=== PATIENT | male | born 1965 | race Caucasian/White ===

== ENCOUNTER 2019-05-19 09:30 | Inpatient (IN) | payer BC ==
[~2019-05-19] VITALS: Ht 180.3 cm; Wt 94.1 kg
[2019-05-19] MEDS ORDERED: PROTONIX 40MG T40 MG PO (11:00)
[2019-05-19] MEDS ORDERED: REGLAN 10MG10 MG/TAB PO (11:01)
[2019-05-19] MEDS ORDERED: COREG 25MG25 MG/TAB PO (11:02)
[2019-05-19] MEDS ORDERED: BUSPIRONE HCL7.5 MG PO (11:03)
[2019-05-19] MEDS ORDERED: LASIX 80MG TABL80 MG PO (11:03)
[2019-05-19] MEDS ORDERED: ASPIRIN 81M81 MG/TA2 PO (11:04)
[2019-05-19] MEDS ORDERED: K-DUR 10 MEQ T10 MEQ PO (11:04)
[2019-05-19] MEDS ORDERED: D3-5050000 IU PO (11:05)
[2019-05-19] MEDS ORDERED: ZEPATIER 50-101 EACH PO (11:06)
[2019-05-19] MEDS ORDERED: NOVOLOG 100U100 U/M1 SQ (11:07)
[2019-05-19] MEDS ORDERED: COZAAR100 MG PO (11:08)
[2019-05-19 11:23] LABS: BASO % 0.3 % (0.0-2.0); EOS # 0.1 (0.0-0.7); EOS % 0.9 % (0-4.0); GRAN # 7.9 (1.4-6.5); GRAN % 77.1 % (42.2-75.2); LYMPH # 1.1 (1.2-3.4); LYMPH % 10.5 % (20.0-51.0); MEAN CELL VOLUME 91 fl (80.0-100.0); MEAN CORPUSCULAR HGB CONC 35 g/dl (33.0-37.0); MEAN PLATELET VOLUME 9.4 fl (7.4-10.4); MONO # 1.1 (0.1-0.6); MONO % 10.2 % (1.7-9.3); PLATELET COUNT 296 K/mm3 (130-400); RED BLOOD COUNT 2.81 M/mm3 (4.10-5.30); REDCELL DISTRIBUTION WIDTH-CV 13.3 % (11.5-14.5)
[2019-05-19 11:24] LABS: HEMATOCRIT 25.5 % (37.0-47.0); HEMOGLOBIN 8.9 g/dl (12.5-16.0); MEAN CORPUSCULAR HEMOGLOBIN 32 pg (27.0-31.0)
[2019-05-19 11:29] LABS: PROTHROMBIN TIME 11.6 SECONDS (9.7-12.8)
[2019-05-19] MEDS ORDERED: TRULICITY0.75 MG/0. SQ (11:29)
[2019-05-19 11:31] LABS: PARTIAL THROMBOPLASTIN TIME 24.8 SECONDS (26.0-37.0)
[2019-05-19 11:39] LABS: ALBUMIN 3.5 gm/dL (3.5-5.0); BILIRUBIN,TOTAL 1.3 mg/dL (0.0-1.0); CREATININE, serum 4.86 (0.52-1.25); TOTAL PROTEIN 6.4 gm/dL (6.4-8.2)
[2019-05-19 11:50] LABS: IRON,SERUM 56 ug/dL (35-150)
[2019-05-19 12:00] LABS: TOTAL IRON BINDING CAPACITY 187 ug/dL (265-497)
[2019-05-19 12:14] LABS: AMYLASE 40 U/L (30-110); LACTATE DEHYDROGENASE 326 U/L (313-618); LIPASE 38 U/L (23-300)
[2019-05-19 15:22] VITALS: BP 190/70; PULSE 92; TEMP 98.7
--- NOTE | 2019-05-19 17:55 | NUR ---
PT TOOK A NAP THIS AFTERNOON AFTER DIALYSIS, AWOKE BRIEFLY NOW TO ATTEMPT EATING SOME CLEAR LIQUIDS. B/P ELEVATED, GIVEN SCHEDULED MEDS, AND B/P'S TRENDING DOWN, WILL CONTINUE TO MONITOR. WILL BE DOING DRESSING CHANGE THIS SHIFT, WILL CHECK WITH NOC NURSE TO SEE IF THEY WANT TO ASSIST AT SHIFT CHANGE INORDER TO VIEW ULCER. PT APPEARS NAUSEATED HAS EMISIS BASIN NEAR HIM BUT DENIED NEED FOR NAUSEA MEDS, REMINDED HIM THAT WE DO HAVE SOMETING IF HE NEEDS IT. NO OTHER NEEDS VOICED AT THIS TIME.
[2019-05-19 19:04] VITALS: BP 180/70; PULSE 78; TEMP 99.5
--- NOTE | 2019-05-19 19:20 | NUR ---
Patient assessed at this time. Alert and oriented x 4, and able to make needs known. Denies having pain and discomfort at this time. No IV access. AV fistula to left upper arm, with positive bruit and thrill. Dressing to area is CDI. Denies SOB and dyspnea. LS CTA. Respirations even and unlabored. HRR. Capillary refill less than 3 seconds. Non-tenting skin turgor. BSAx4. Abdomen soft and non-tender. Does have some nausea. Has not eatten any supper at this time. Given scheduled Reglan. No edema. Patient sees wound care outpatient for sores to bottom. Sores to bilateral buttocks. the one on the left has a dressing, and patient requested dressing to be changed. Dressing taken off, cleaned. Some yellow drainage to old packing noted. Repacked using sterile q-tip. Surrounding skin is without redness, warmth, swelling, and pain. gauze placed over top and tape. The ulcer on the right buttock had been open to air. Patient states that wound care does not put a dressing on it, it is an older one that is healing. Did not want any dressing placed to that sore. Denies having any questions, needs, or concerns at this time. Resting in bed with call light within reach.
[2019-05-20 00:05] VITALS: BP 177/65; PULSE 73; TEMP 98.8
[2019-05-20 04:44] VITALS: BP 187/72; PULSE 79; TEMP 98.5
--- NOTE | 2019-05-20 05:17 | NUR ---
Patient's BP has been 170s-190s/60s-70s. Has received PRN Appresoline every 4 hours during the night. No emesis this shift. Did receive scheduled Reglan last night and protonix this morning. Max temperature during the night was 99.5. Still needing occult stools sample. Patient aware and supplies in room. Has been sleepy and resting most of the night. Call light is within reach.
[2019-05-20 07:29] VITALS: BP 184/68; PULSE 74; TEMP 98.7
[2019-05-20 11:33] VITALS: BP 159/58; PULSE 67; TEMP 99
[2019-05-20 16:21] VITALS: BP 166/61; PULSE 62; TEMP 99
--- NOTE | 2019-05-20 19:56 | NUR ---
Pt has had an uneventful day. Pt has slept the majority of the day, and has been independent in his room. No other concerns. Report given to NOAH Carbone.
[2019-05-20 20:30] VITALS: BP 140/62; PULSE 65; TEMP 98.7
--- NOTE | 2019-05-20 20:30 | NUR ---
Initial shift assessment done- has been resting most of the day- understands will have EGD at 0900 in the morning- NPO after MN- consent signed at this time. Denies pain/nausea- states right in the center of abdomen he feels a "full feeling" did not eat supper tonight. Understands we need a stool for occult when he has his next stool. Did change the dressings to his buttocks- one to the right buttock and one to the left buttock- both small - looks like slits, both same size and look the same- deep,,packed with iodoform gauze and covered with 4x4 and tape-
[2019-05-21] VITALS (10 sets, daily range): BP systolic 132–186; BP diastolic 48–74; PULSE 62–70; TEMP 97.6–98.8
--- NOTE | 2019-05-21 00:20 | NUR ---
Was given Apresoline for B/P 186/ per prn orders- has been resting, did have large black BM- occult positive. NP0 for EGD in AM. Denies pain.
--- NOTE | 2019-05-21 05:30 | NUR ---
Was given Apresoline p.o for B/P 177/ , no requests, has been sleeping well tonight-Quiet night
[2019-05-21 06:36] LABS: BASO # 0.1 (0.0-0.2); BASO % 0.8 % (0.0-2.0); EOS # 0.2 (0.0-0.7); EOS % 1.6 % (0-4.0); GRAN # 6.4 (1.4-6.5); LYMPH # 1.7 (1.2-3.4); LYMPH % 18.5 % (20.0-51.0); MEAN CELL VOLUME 94 fl (80.0-100.0); MEAN CORPUSCULAR HGB CONC 34 g/dl (33.0-37.0); MEAN PLATELET VOLUME 9.7 fl (7.4-10.4); MONO # 0.9 (0.1-0.6); MONO % 9.1 % (1.7-9.3); PLATELET COUNT 283 K/mm3 (130-400); RED BLOOD COUNT 2.81 M/mm3 (4.10-5.30); REDCELL DISTRIBUTION WIDTH-CV 13.8 % (11.5-14.5)
[2019-05-21 06:41] LABS: HEMATOCRIT 26.5 % (37.0-47.0); MEAN CORPUSCULAR HEMOGLOBIN 32 pg (27.0-31.0)
[2019-05-21 06:48] LABS: ALBUMIN 3.3 gm/dL (3.5-5.0); BILIRUBIN,TOTAL 1.1 mg/dL (0.0-1.0); CALCIUM 8.8 mg/dL (8.4-10.2); CREATININE, serum 5.31 (0.52-1.25); POTASSIUM 3.9 mmol/L (3.4-5.0); TOTAL PROTEIN 6.1 gm/dL (6.4-8.2)
--- NOTE | 2019-05-21 08:28 | NUR ---
Patient is going down for EGD at this time, consent signed, IVF at o
--- NOTE | 2019-05-21 09:30 | NUR ---
Patient arrived back to Medical floor from Endoscopy, he is alert/oriented, vital signs stable, denies needs at this time
--- NOTE | 2019-05-21 09:46 | NUR ---
Assessment completed, alert/oriented, vital signs stable, reports abd "fullness" but denies pain, he had EGD this morning and his has been updated on plan of care, heart RRR, lungs CTA, hemaglobin stable at 9.0/ no signs of bleeding noted, denies other needs at this time, will continue to mnitor
--- NOTE | 2019-05-21 10:47 | NUR ---
[employer] spoke with patient by calling him (ph#[phone]). Patient lives in [place] with his Ami (ph#[phone]) and his adult daughter. Patient sees Dr. Glover for primary care and obtains medications from [facility] with no difficulties. Patient uses a cane and no other DME. Patient reports independence with his ADLS and plans to return home upon discharge. Patient states his , Ami is his DPOA-HC. Patient states he sees a land development project manager, Rayna Fernández in [place] regularly. SW to continue to follow as needed.
--- NOTE | 2019-05-21 19:50 | NUR ---
At this time, patient has just returned to bed from using bathroom. He states he had diarrhea. He is also "feeling woozy" at this time. BP is 113/58, HR 60, O2 97 on RA and Temp 98.0. BG is checked and it is 140. Patient states he has been feeling woozy recently but it usually doesn't last this long. Will continue to monitor vitals.
[2019-05-22 03:46] VITALS: BP 131/59; PULSE 72; TEMP 98.5
--- NOTE | 2019-05-22 05:27 | NUR ---
Patient has had a restful night and is no longer feeling "whoozy". No complaints of pain or further concerns. Will continue to monitor.
[2019-05-22 07:05] VITALS: BP 174/72; PULSE 63; TEMP 98
[2019-05-22 08:47] LABS: BASO # 0.1 (0.0-0.2); BASO % 0.6 % (0.0-2.0); EOS # 0.1 (0.0-0.7); EOS % 1.5 % (0-4.0); GRAN # 7.1 (1.4-6.5); LYMPH # 1.4 (1.2-3.4); MEAN CELL VOLUME 91 fl (80.0-100.0); MEAN CORPUSCULAR HGB CONC 34 g/dl (33.0-37.0); MEAN PLATELET VOLUME 9.4 fl (7.4-10.4); MONO # 0.7 (0.1-0.6); MONO % 7.8 % (1.7-9.3); PLATELET COUNT 269 K/mm3 (130-400); RED BLOOD COUNT 2.96 M/mm3 (4.20-5.60); REDCELL DISTRIBUTION WIDTH-CV 13.9 % (11.5-14.5)
[2019-05-22 08:52] LABS: HEMOGLOBIN 9.3 g/dl (13.5-18.0); MEAN CORPUSCULAR HEMOGLOBIN 31 pg (27.0-31.0)
[2019-05-22 08:58] LABS: ALBUMIN 3.1 gm/dL (3.5-5.0); CALCIUM 8.4 mg/dL (8.4-10.2); CREATININE, serum 6.73 (0.66-1.25); POTASSIUM 4.4 mmol/L (3.4-5.0)
[2019-05-22] MEDS ORDERED: LASIX 80MG TABL80 MG PO (09:07)
[2019-05-22] MEDS ORDERED: REGLAN 5MG T5 MG/TAB PO (09:08)
[2019-05-22] MEDS ORDERED: INSULIN AS100 UNIT/3 SQ (09:44)
[2019-05-22] MEDS ORDERED: APRESOLINE 10MG10 MG PO (09:46)
[2019-05-22] MEDS ORDERED: RENVELA800 MG PO (09:47)
[2019-05-22] MEDS ORDERED: PROTONIX 40MG T40 MG PO ×2 (09:51)
[2019-05-22] MEDS ORDERED: PRISTIQ25 MG PO (09:56)
[2019-05-22] MEDS ORDERED: BUSPIRONE HCL7.5 MG PO (09:58)
[2019-05-22 12:18] VITALS: BP 144/64; PULSE 63; TEMP 98.4
[2019-05-22] MEDS ORDERED: COLESTID 1GM1 G PO (13:01)
--- NOTE | 2019-05-22 13:40 | NUR ---
PT WENT TO DIALYSIS THIS AM WITHOUT ISSUES. ECHO PERFORMED AFTERWARDS. DISCHARGE PAPERWORK DISCUSSED WTIH PT, ALL QUESTIONS ANSWERED. PT STATED HE'D CALL US UPON RIDES ARRIVAL.
--- NOTE | 2019-05-22 14:00 | NUR ---
PT ESCORTED DELPHINE BY SQL MANAGER.
[2019-07-05] MEDS ORDERED: PROTONIX 40MG T40 MG PO (10:55)
[2019-07-05] MEDS ORDERED: LIPITOR20 MG PO (11:41)
== END 2019-05-22 14:00 | disposition home or self-care (01) | DRG 380 ==
LOC: MEDICAL 09:30 → EDSEX 10:54 → MEDICAL 10:54
PROVIDERS: Internal Medicine Gastroenterology; ADMIT Internal Medicine Nephrology
PROC: 0DB78ZX Excision of Stomach, Pylorus, Via Natural or Artificial Opening Endoscopic, Diagnostic (ICD-10-PCS; 2019-05-21)
PROC: 0DB68ZX Excision of Stomach, Via Natural or Artificial Opening Endoscopic, Diagnostic (ICD-10-PCS; 2019-05-21)
PROC: 0DB68ZZ Excision of Stomach, Via Natural or Artificial Opening Endoscopic (ICD-10-PCS; 2019-05-21)
PROC: 0DB58ZX Excision of Esophagus, Via Natural or Artificial Opening Endoscopic, Diagnostic (ICD-10-PCS; 2019-05-21)
PROC: 0DB98ZX Excision of Duodenum, Via Natural or Artificial Opening Endoscopic, Diagnostic (ICD-10-PCS; principal; 2019-05-21 09:00)
PROC: 5A1D70Z Performance of Urinary Filtration, Intermittent, Less than 6 Hours Per Day (ICD-10-PCS; 2019-05-22)
DX: K22.70 Barrett's esophagus without dysplasia (principal); N18.6 End stage renal disease; N25.81 Secondary hyperparathyroidism of renal origin; K44.9 Diaphragmatic hernia without obstruction or gangrene; K29.70 Gastritis, unspecified, without bleeding; E11.65 Type 2 diabetes mellitus with hyperglycemia; D63.1 Anemia in chronic kidney disease; K90.0 Celiac disease; F32.9 Major depressive disorder, single episode, unspecified; K21.9 Gastro-esophageal reflux disease without esophagitis; E55.9 Vitamin D deficiency, unspecified; E11.22 Type 2 diabetes mellitus with diabetic chronic kidney disease; L89.312 Pressure ulcer of right buttock, stage 2; D64.9 Anemia, unspecified; K31.7 Polyp of stomach and duodenum; K30 Functional dyspepsia; K29.80 Duodenitis without bleeding; Z79.82 Long term (current) use of aspirin
CPT/HCPCS: J1644; J1815; J2704; J2916; J7030; Q5105

== ENCOUNTER → 2019-05-29 | Outpatient (CLI) | payer BC ==
[~2019-05-29] MED LIST: APRESOLINE 10MG10 MG PO; ASPIRIN 81M81 MG/TA2 PO; BUSPIRONE HCL7.5 MG PO; COLESTID 1GM1 G PO; COREG 25MG25 MG/TAB PO; COZAAR100 MG PO; D3-5050000 IU PO; INSULIN AS100 UNIT/3 SQ; K-DUR 10 MEQ T10 MEQ PO; LASIX 80MG TABL80 MG PO; NOVOLOG 100U100 U/M1 SQ; PRISTIQ25 MG PO; PROTONIX 40MG T40 MG PO; REGLAN 10MG10 MG/TAB PO; REGLAN 5MG T5 MG/TAB PO; RENVELA800 MG PO; TRULICITY0.75 MG/0. SQ; ZEPATIER 50-101 EACH PO
== END ==
LOC: ZCOL.LAB 15:18
DX: Z11.59 Encounter for screening for other viral diseases (principal); E11.22 Type 2 diabetes mellitus with diabetic chronic kidney disease; N18.6 End stage renal disease

== ENCOUNTER 2020-03-21 10:07 | Day surgery (SDC) | payer MEDICARE, BC ==
[~2020-03-21] VITALS: Ht 182.9 cm; Wt 99.2 kg
[~2020-03-21 10:07] MED LIST changes: +ADVIL200 MG PO; +FLORINEF ACETA0.1 MG PO; +LIPITOR20 MG PO; +PRISTIQ 50 MG T50 MG PO
[2020-03-21] MEDS ORDERED: ASPIRIN 32325 MG/TAB PO (10:35)
[2020-03-21 10:55] VITALS: BP 182/82; PULSE 66; TEMP 97.6
[2020-03-21 13:07] VITALS: BP 181/84; PULSE 68; TEMP 97.9
[2020-03-21 13:15] VITALS: BP 199/87; PULSE 65
[2020-03-21 13:45] VITALS: BP 195/88; PULSE 69
[2020-03-21 13:50] VITALS: BP 171/79
[2020-03-21 14:57] VITALS: BP 181/84; PULSE 67
--- NOTE | 2020-03-21 15:34 | NUR ---
PT RETURNED FROM ENDO PROCEDURE ROOM INTO BAY#8. PT ALERT AND SLEEPY. LUNGS CLEAR, HRR, BOWEL SOUNDS PRESENT. PT DENIES PAIN OR NAUSEA. PT TOLERATING APPLE JUICE AND PUDDING AND APPLESAUCE. UN ROOM WITH PT, CALL LIGHT IN REACH.
--- NOTE | 2020-03-21 15:38 | NUR ---
PRE-OP BP WAS 182/82. PT DENIES HEADACHE OR NAUSEA R/T ELEVATED BP. PT TOLERATING PO WITHOUT DIFFICULTY.
--- NOTE | 2020-03-21 15:40 | NUR ---
PT CONT TO DENY HEADACHE AND NAUSEA RELATED TO INCREASED BP AND POST-TX. PT WAS GIVEN 5MG OF HYDROLIZINE IV PER NURSE ANETHETISTJASON. WILL CONT TO MONITOR BP.
--- NOTE | 2020-03-21 15:44 | NUR ---
PT BP IS BELOW 190 SYSTOLIC PER JASON ELMORE. IV DC'D PER RIGHT HAND. PT DENIES PAIN OR NAUSEA AT THIS TIME. DISMISSAL INSSTRUCTIONS GIVEN. PT DENIES QUESTIONS. PT DISCHARGED PER WC INTO FAILY VEHICLE. PT MARKOS
== END 2020-03-21 15:00 | disposition home or self-care (01) ==
LOC: SDCO 10:07
DX: K21.00 Gastro-esophageal reflux disease with esophagitis, without bleeding (principal); K44.9 Diaphragmatic hernia without obstruction or gangrene; K22.8 Other specified diseases of esophagus; K29.70 Gastritis, unspecified, without bleeding; D12.2 Benign neoplasm of ascending colon; D12.5 Benign neoplasm of sigmoid colon; D12.3 Benign neoplasm of transverse colon; K64.2 Third degree hemorrhoids; K64.4 Residual hemorrhoidal skin tags; E10.22 Type 1 diabetes mellitus with diabetic chronic kidney disease; I12.0 Hypertensive chronic kidney disease with stage 5 chronic kidney disease or end stage renal disease; E10.43 Type 1 diabetes mellitus with diabetic autonomic (poly)neuropathy; K31.84 Gastroparesis; D63.1 Anemia in chronic kidney disease; E78.5 Hyperlipidemia, unspecified; N18.6 End stage renal disease; F32.9 Major depressive disorder, single episode, unspecified; Z99.2 Dependence on renal dialysis; Z80.0 Family history of malignant neoplasm of digestive organs; Z79.82 Long term (current) use of aspirin; Z79.899 Other long term (current) drug therapy; Z91.14 Patient's other noncompliance with medication regimen; E21.3 Hyperparathyroidism, unspecified
CPT/HCPCS: J0360; J2704

== ENCOUNTER 2021-03-20 08:01 | Outpatient (CLI) | payer MEDICARE, OTHER ==
[2021-03-20] VITALS (8 sets, daily range): BP systolic 144–220; BP diastolic 71–114; PULSE 70–85; TEMP 98.7
[~2021-03-20] VITALS: Ht 183 cm; Wt 103.8 kg
[~2021-03-20 08:01] MED LIST changes: +ASPIRIN 32325 MG/TAB PO
[2021-03-20] MEDS ORDERED: ELIQUIS 5MG PO (08:24)
[2021-03-20] MEDS ORDERED: LIPITOR20 MG PO (08:25)
[2021-03-20] MEDS ORDERED: ASPIRIN E.C. 8181 MG PO (08:25)
[2021-03-20] MEDS ORDERED: BUSPIRONE HCL7.5 MG PO (08:26)
[2021-03-20] MEDS ORDERED: COREG 25MG25 MG/TAB PO (08:27)
[2021-03-20] MEDS ORDERED: PRISTIQ 50 MG T50 MG PO (08:27)
[2021-03-20] MEDS ORDERED: FLORINEF ACETA0.1 MG PO (08:28)
[2021-03-20] MEDS ORDERED: COZAAR100 MG PO (08:29)
[2021-03-20] MEDS ORDERED: LASIX 80MG TABL80 MG PO (08:29)
[2021-03-20] MEDS ORDERED: REGLAN 10MG10 MG/TAB PO (08:30)
[2021-03-20] MEDS ORDERED: PROTONIX 40MG T40 MG PO (08:31)
[2021-03-20 08:32] LABS: HEMOGLOBIN 10.9 g/dl (13.5-18.0); MEAN CELL VOLUME 90 fl (80.0-100.0); MEAN CORPUSCULAR HEMOGLOBIN 31 pg (27-31); MEAN CORPUSCULAR HGB CONC 35 g/dl (33.0-37.0); MEAN PLATELET VOLUME 9.9 fl (7.4-10.4); PLATELET COUNT 203 K/mm3 (130-400); RED BLOOD COUNT 3.52 M/mm3 (4.20-5.60)
[2021-03-20] MEDS ORDERED: RENVELA800 MG PO (08:32)
[2021-03-20 08:37] LABS: HEMATOCRIT 31.6 % (42.0-52.0)
[2021-03-20 08:47] LABS: CALCIUM 8.4 mg/dL (8.4-10.2); CREATININE, serum 4.9 mg/dL (0.72-1.25); POTASSIUM 3.7 mmol/L (3.5-4.5)
[2021-03-20 08:58] LABS: INR 1.4 (0.8-3.0); PROTHROMBIN TIME 15.6 SECONDS (9.7-12.8)
--- NOTE | 2021-03-20 11:00 | NUR ---
DC instructions reviewed with pt and . Both express understanding. Pt has tolerated PO fluids without issue. He denies dizziness or other concerns and is able to transfer around room without issue. INT DC'd with catheter intact. He is assisted out to 's car with belongings.
== END 2021-03-20 11:00 | disposition home or self-care (01) ==
LOC: COL.RAD 08:01
PROVIDERS: Internal Medicine Cardiovascular Disease
DX: Z01.818 Encounter for other preprocedural examination (principal); I48.91 Unspecified atrial fibrillation; Z20.822 Contact with and (suspected) exposure to COVID-19
CPT/HCPCS: J2370; J2704; J7030

== ENCOUNTER 2022-05-27 14:10 | Inpatient (IN) | payer MEDICARE, BC ==
[~2022-05-27] VITALS: Ht 182.9 cm; Wt 94.6 kg
[~2022-05-27 14:10] MED LIST changes: +ASPIRIN E.C. 8181 MG PO; +ELIQUIS 5MG PO; +NORVASC2.5 MG PO; +TUMS ULTRA ST1000 MG PO
--- NOTE | 2022-05-27 15:30 | NUR ---
PATIENT ARRIVED DIRECT ADMIT FROM DIALYSIS. PATIENT AWAKE AND ALERT, ANSWERS AL ORIENTATIO QUESTIONS CORRECTLY AND APPROPRIATE. PATIENTS AT BEDSIDE TO ASSIST WITH MEDICAL HISTORY QUESTIONS. PATIENT CHNAGED INTO FALL RISK GOWN AND PRECAUTIONS IN PLACE. PER PATIENTS HE FELL RECENTLY AT HOME, HAD SOME EMS AND WAS TAKEN TO [facility] IN [place]. PER PATIENT WAS JUSTY DISCHARGED YESTERDAY. HOWEVER SHE FEELS PATIENT TO BE UNSAFE AT HOME, AND PER DIALYSIS HE WAS HAVING CHILLS, SO PATIENT SENT HERE FOR DIRECT ADMISSION.
--- NOTE | 2022-05-27 15:43 | NUR ---
[facility] IN [place] CALLED. WILL FAX OVER PATIENTS MED LIST EDISON.
[2022-05-27 15:54] VITALS: BP 164/62; PULSE 82; TEMP 98.5
[2022-05-27] MEDS ORDERED: IMODIUM 2MG CAPS2 MG PO (16:10)
[2022-05-27] MEDS ORDERED: NORVASC2.5 MG PO (16:11)
[2022-05-27] MEDS ORDERED: OMNICEF 300MG300 MG PO (16:14)
[2022-05-27] MEDS ORDERED: DOXYCYCLINE HY100 MG PO (16:15)
[2022-05-27] MEDS ORDERED: VENELEX OINTMEN30 GM TP (16:15)
[2022-05-27] MEDS ORDERED: PROAIR HFA0.09 MG/AC IH (16:16)
[2022-05-27 16:35] LABS: BASO % 0.3 % (0.0-2.0); LYMPH # 0.4 K/mm3 (1.2-3.4); LYMPH % 12.8 % (20.0-51.0); MEAN CELL VOLUME 94 fl (80.0-100.0); MEAN CORPUSCULAR HGB CONC 33 g/dl (33.0-37.0); MEAN PLATELET VOLUME 10.3 fl (7.4-10.4); MONO # 0.5 K/mm3 (0.1-0.6); MONO % 17.6 % (1.7-9.3); PLATELET COUNT 102 K/mm3 (130-400); RED BLOOD COUNT 3.06 M/mm3 (4.20-5.60); REDCELL DISTRIBUTION WIDTH-CV 13.4 % (11.5-14.5)
[2022-05-27 16:44] LABS: HEMATOCRIT 28.7 % (42.0-52.0); HEMOGLOBIN 9.6 g/dl (13.5-18.0); MEAN CORPUSCULAR HEMOGLOBIN 31 pg (27-31)
[2022-05-27 16:50] LABS: ALBUMIN 3.4 gm/dL (3.5-5.0); BILIRUBIN,TOTAL 1.5 mg/dL (0.2-1.2); CREATININE, serum 4.26 mg/dL (0.72-1.25); POTASSIUM 3.4 mmol/L (3.5-4.5); TOTAL PROTEIN 6.7 gm/dL (6.2-8.1)
--- NOTE | 2022-05-27 18:24 | NUR ---
ELIDA GONE TO CT
--- NOTE | 2022-05-27 18:30 | NUR ---
CALL RECIEVED FROM RADIOLOGY, PATIENT HAS ORDERS FOR CT WITH CONTRAST HOWEVER HAS ELEVATED CREATININE. INFORMED THEM PATIENT DID DIALYSIS ALREADY TODAY AND NORMAL SCHEDULE IS Tuesday. PER RADIOLOGY THEY WILL DO CT WITHOUT CONTRAST D/T LABS.
--- NOTE | 2022-05-27 19:28 | NUR ---
RECEIVED CHANGE OF SHIFT REPORT FROM DAY SHIFT RN.
[2022-05-27 19:33] VITALS: BP 165/66; PULSE 83; TEMP 100.1
[2022-05-27 23:12] VITALS: BP 129/60; PULSE 82; TEMP 99.8
[2022-05-28] VITALS (8 sets, daily range): BP systolic 104–151; BP diastolic 48–67; PULSE 74–86; TEMP 98.1–101.1
--- NOTE | 2022-05-28 07:04 | NUR ---
CHANGE OF SHIFT REPORT GIVEN TO DAY SHIFT RNMORALES.
--- NOTE | 2022-05-28 08:00 | NUR ---
PATIENT ASLEEP, RESTING IN BED. VITALS STABLE. CALL LIGHT WITHIN REACH, BED ALARM ON.
--- NOTE | 2022-05-28 08:05 | NUR ---
NOTIFIED BY RN STUDENT PATIENT HAVING INCREASED RESPIRATIONS. UPON ASSESSMENT, PATIENTS RESPIRATIONS NOTED AT 27 PER MINUTE. PATIENT IS CURRENTLY AWAKE, ALERT AND ORIENTED, HE DENIES ANY PAIN, OR OTHER COMPLAINTS AT THIS TIME. PATIENT RESTING IN BED. CALL LIGHT WITHIN REACH, BED ALARM ON.
--- NOTE | 2022-05-28 08:34 | NUR ---
0800 PT APPEARS TO BE ASLEEP IN BED UPON ENTERING. ASSESSMENT DONE, SEE INTERVENTIONS. PT HAS NO COMPLAINTS OF PAIN AT THIS TIME. PT HAS A SMALL, ERASER SIZED WOUND ON SACRUM, POSSIBLE TUNNELING. PT RECENTLY HAD A FALL RESULTING IN A LACERATION ON NOSE, CURRENTLY COVERED BY GAUZE AND TAPE. FISTULA THRILL PALPATED AND BRUIT AUSCULATE. PT HAS NO OTHER COMPLAINTS AT THIS TIME. CALL LIGHT IN REACH, BED IN LOWEST POSITION, BED ALARM ON.
--- NOTE | 2022-05-28 08:52 | NUR ---
Initial visit; Patient thanked Completions Engineer for looking in on him and offering God's blessings and states he is doing well.
--- NOTE | 2022-05-28 10:00 | NUR ---
CALLED [facility], PER THEIR RECORDS PATIENTS BLOOD CULTURE PRELIMINARY REPORT NEGATIVE, AND NO SPUTUM CULTURE EVER RECIEVED.
--- NOTE | 2022-05-28 10:28 | NUR ---
1000 PHYSICAL THERAPY IN ROOM, PT AMBULATED TO BEDSIDE COMMODE WITH WALKER AND GATI BELT. PT REPORTS SOME SHORTNESS OF BREATH WHEN TRANSFERRING BACK TO BED. PT REPORTS NO PAIN OR OTHER COMPLAINTS AT THIS TIME.
--- NOTE | 2022-05-28 11:14 | NUR ---
AWAITING CALL BACK FROM WOUND CARE BEE ROBBER'S NURSE JERED FOR NEW CONSULT
--- NOTE | 2022-05-28 12:15 | NUR ---
CALL RECIEVED FROM WOUND NURSE JERED. INFORMED HER OF WOUND TO SACRUM AND NEWLY NOTED ONE TO BACK OF NECK. NEITHER HAVE ANY DRAINAGE, AND LOOK LIKE THEY ARE MORE LIKELY CHRONIC. PER JERED, [facility] DOES NOT ROUND UNTIL TUESDAY AND HAS NO OPEN AVAILABLILITY TO ROUND SOONER. IF PATIENT DISCHARGES BEFORE TUESDAY WE CAN CALL FOR A FOLLOW UP APT TO SEE WOUND.
--- NOTE | 2022-05-28 13:10 | NUR ---
SW met with patient to complete intake and discuss discharge plan. Patients Dr.Rhonda Melo ([phone]) present at bedside. Per spouse, patient is normally independent with his ADL's but does receive assistance for bathing through a private duty bath aid.No other home health is established at this time. Patient untilizes a walker to assist with ambulation. He has no home oxygen needs. Per spouse, patient does not currently have a PCP. He was established with Dr. Echeverria and then however since each of their departures from PCP care, the patient is now being managed through . Patient receives dialysis on ,Sat with a 1030 chair time. He utilizes [facility] pharmacy for prescriptions. Per spouse patient does have a DPOA-HC established listing her as his agent. SW review PT/OT rec's with patient and spouse and at this time, due to spouse working, they feel it is best for the patient to receive post acute rehab. Spouse reports that the patient has been to out IPR unit in the patient and that this would be their first choice. IPR referral made. Discharge plan: IPR reviewing.
--- NOTE | 2022-05-28 16:09 | NUR ---
RN CALLED [facility] , PATIENTS BLOOD CULTURE RESULTS TO BE FAXED OVER
[2022-05-28 16:36] LABS: BASO % 0.8 % (0.0-2.0); EOS % 1.2 % (0.0-4.0); GRAN # 1.6 K/mm3 (1.4-6.5); GRAN % 61.5 % (42.2-75.2); LYMPH # 0.5 K/mm3 (1.2-3.4); LYMPH % 20.4 % (20.0-51.0); MEAN CELL VOLUME 94 fl (80.0-100.0); MEAN CORPUSCULAR HGB CONC 34 g/dl (33.0-37.0); MEAN PLATELET VOLUME 10.3 fl (7.4-10.4); MONO # 0.4 K/mm3 (0.1-0.6); MONO % 15.7 % (1.7-9.3); PLATELET COUNT 101 K/mm3 (130-400); RED BLOOD COUNT 2.76 M/mm3 (4.20-5.60); REDCELL DISTRIBUTION WIDTH-CV 13.7 % (11.5-14.5)
[2022-05-28 16:37] LABS: HEMATOCRIT 25.9 % (42.0-52.0); HEMOGLOBIN 8.7 g/dl (13.5-18.0); MEAN CORPUSCULAR HEMOGLOBIN 32 pg (27-31)
[2022-05-28 16:52] LABS: ALBUMIN 2.9 gm/dL (3.5-5.0); CALCIUM 7.7 mg/dL (8.4-10.2); CREATININE, serum 6.62 mg/dL (0.72-1.25); POTASSIUM 3.6 mmol/L (3.5-4.5); TOTAL PROTEIN 5.9 gm/dL (6.2-8.1)
[2022-05-29] VITALS (10 sets, daily range): BP systolic 107–151; BP diastolic 52–74; PULSE 67–80; TEMP 98.1–98.7
--- NOTE | 2022-05-29 04:29 | NUR ---
Shift assessment performed- see documentation. Pt is alert and oriented. He reports no pain. He continues on 2 L O2. He has been unable to collect a stool sample during shift. Stool collection cup is in pt's room and he is aware that we need a sample. Fall precautions in place. Bed in lowest position and call light within reach.
[2022-05-29 07:00] LABS: ALBUMIN 2.9 gm/dL (3.5-5.0); CALCIUM 7.4 mg/dL (8.4-10.2); CREATININE, serum 7.6 mg/dL (0.72-1.25); PHOSPHOROUS 4.2 mg/dL (2.3-4.7); POTASSIUM 3.4 mmol/L (3.5-4.5)
[2022-05-29 07:09] LABS: BASO % 0.8 % (0.0-2.0); EOS # 0.1 K/mm3 (0.0-0.7); EOS % 3.3 % (0.0-4.0); GRAN # 1.5 K/mm3 (1.4-6.5); GRAN % 60.8 % (42.2-75.2); LYMPH # 0.5 K/mm3 (1.2-3.4); MEAN CELL VOLUME 92 fl (80.0-100.0); MEAN CORPUSCULAR HGB CONC 34 g/dl (33.0-37.0); MONO # 0.4 K/mm3 (0.1-0.6); MONO % 15.7 % (1.7-9.3); PLATELET COUNT 97 K/mm3 (130-400); RED BLOOD COUNT 2.78 M/mm3 (4.20-5.60); REDCELL DISTRIBUTION WIDTH-CV 13.4 % (11.5-14.5)
[2022-05-29 07:14] LABS: HEMATOCRIT 25.6 % (42.0-52.0); HEMOGLOBIN 8.7 g/dl (13.5-18.0); MEAN CORPUSCULAR HEMOGLOBIN 31 pg (27-31)
--- NOTE | 2022-05-29 08:59 | NUR ---
PT RESTING IN BED. PT AWAKES TO VOICE BUT STILL DROWSY. PT DENIES NEEDS AT THIS TIME. PT HAS CALL LIGHT WITH IN REACH AND INSTRUCTED TO CALL WITH ALL NEEDS. BED ALARM ACTIVE.
--- NOTE | 2022-05-29 14:11 | NUR ---
THIS RN ASSUMED CARE FOR PATIENT. PATIENT ASSISTED TO CHAIR FOLLOWING DIALYSIS, CURRENTLY EATING LUNCH. DENIES NEEDS. CALL LIGHT WITHIN REACH.
--- NOTE | 2022-05-29 21:56 | NUR ---
Shift assessment performed- see documentation. He is unkept and has poor hygiene. I offered a shower and a toothbrush but pt refused both. He refused his nutritional supplement drink. He continues on 2 L O2. He has had no BM today, GI panel to still be collected. A wound on the left buttocks was noted near the anus, possible tunneling. He is on fall precautions. Bed in lowest position and call light within reach.
[2022-05-30] VITALS (8 sets, daily range): BP systolic 107–141; BP diastolic 50–77; PULSE 69–73; TEMP 97.3–98.6
[2022-05-30 06:14] LABS: BASO % 0.8 % (0.0-2.0); EOS # 0.1 K/mm3 (0.0-0.7); EOS % 3.4 % (0.0-4.0); GRAN # 1.5 K/mm3 (1.4-6.5); GRAN % 55.5 % (42.2-75.2); HEMATOCRIT 26.7 % (42.0-52.0); LYMPH # 0.7 K/mm3 (1.2-3.4); LYMPH % 25.7 % (20.0-51.0); MEAN CELL VOLUME 92 fl (80.0-100.0); MEAN CORPUSCULAR HEMOGLOBIN 31 pg (27-31); MEAN CORPUSCULAR HGB CONC 34 g/dl (33.0-37.0); MEAN PLATELET VOLUME 10.8 fl (7.4-10.4); MONO # 0.4 K/mm3 (0.1-0.6); MONO % 13.8 % (1.7-9.3); PLATELET COUNT 106 K/mm3 (130-400); RED BLOOD COUNT 2.89 M/mm3 (4.20-5.60); REDCELL DISTRIBUTION WIDTH-CV 13.3 % (11.5-14.5)
[2022-05-30 06:24] LABS: ALBUMIN 2.9 gm/dL (3.5-5.0); CALCIUM 7.8 mg/dL (8.4-10.2); CREATININE, serum 5.57 mg/dL (0.72-1.25); PHOSPHOROUS 3.3 mg/dL (2.3-4.7); POTASSIUM 3.3 mmol/L (3.5-4.5)
--- NOTE | 2022-05-30 06:30 | NUR ---
PATIENT RESTING IN BED, ASLEEP. O2 ON, RESPIRATIONS ADEQUATE, BED ALAR ON, CALL LIGHT WITHIN REACH.
--- NOTE | 2022-05-30 09:00 | NUR ---
PATIENT GOT UP TO HAIR WITH PT, CHAIR ALARM ON, CALL LIGHT WITHIN REACH. PATIENT EATING BREAKFAST.
--- NOTE | 2022-05-30 10:42 | NUR ---
SARA CALLED AND STATED HE WANTS TO GET BACK TO BED. INFORMED PAITENT IT WOULD BE BEST TO STAY UP A LITTLE LONGER AND MAYBE EAT LUNCH IN THE CAIR. PATIENT REFUSED, STATED HE WANTS TO GO BACK TO SLEEP. JUAN ANTONIO Coley ASSISTED PATIENT BACK TO BED. PATIENT NOW RESTING IN BED, SCDS ON, BED ALARM ON, CALL LIGHT WITHIN REACH.
--- NOTE | 2022-05-30 11:25 | NUR ---
Pit Hand rounds: Pit Hand visit offered; Patient declined.
--- NOTE | 2022-05-30 14:00 | NUR ---
PATIENT ASLEEP, EASILY AROUSABLE. PATIENT DID NOT TOUCH HIS LUNCH AND REFUSED NEPRO SHAKE.
--- NOTE | 2022-05-30 17:02 | NUR ---
PATIENT ASLEEP RESTING IN BED. PATIENT REFUSING TO GET UP TO CHAIR FOR DINNER. PATIENT DID NOT DRINK ANY NUTRITION SUPPLEMENTS TODAY. BED ALARM ON, CALL LIGHT LUCIANO ESCOTO.
[2022-05-31] VITALS (7 sets, daily range): BP systolic 123–154; BP diastolic 56–72; PULSE 60–78; TEMP 96.6–98.3
[2022-05-31 06:41] LABS: BASO % 0.7 % (0.0-2.0); EOS # 0.1 K/mm3 (0.0-0.7); GRAN # 1.8 K/mm3 (1.4-6.5); GRAN % 60.3 % (42.2-75.2); LYMPH # 0.7 K/mm3 (1.2-3.4); LYMPH % 24.3 % (20.0-51.0); MEAN CELL VOLUME 93 fl (80.0-100.0); MEAN CORPUSCULAR HGB CONC 34 g/dl (33.0-37.0); MEAN PLATELET VOLUME 10.6 fl (7.4-10.4); MONO # 0.3 K/mm3 (0.1-0.6); PLATELET COUNT 122 K/mm3 (130-400); RED BLOOD COUNT 2.87 M/mm3 (4.20-5.60); REDCELL DISTRIBUTION WIDTH-CV 13.4 % (11.5-14.5)
[2022-05-31 06:42] LABS: HEMATOCRIT 26.8 % (42.0-52.0); MEAN CORPUSCULAR HEMOGLOBIN 31 pg (27-31)
[2022-05-31 06:56] LABS: ALBUMIN 2.8 gm/dL (3.5-5.0); CALCIUM 7.7 mg/dL (8.4-10.2); CREATININE, serum 7.4 mg/dL (0.72-1.25); PHOSPHOROUS 3.8 mg/dL (2.3-4.7); POTASSIUM 3.6 mmol/L (3.5-4.5)
--- NOTE | 2022-05-31 07:57 | NUR ---
Received shift report from the night nurse, NOAH Sotomayor
--- NOTE | 2022-05-31 08:04 | NUR ---
NURSING SHIFT ASSESSMENT COMPLETED. THE PATIENT WAS ALERT AND ORINETED. THE PLAN OF CARE WAS TAUGHT AND EVENING MEDICATIONS DISCUSSED. QUESTIONS AND CONCERNS WERE ADDRESSED. PERSONAL ITEMS, CALL LIGHT WITHIN REACH. BED IN LOW POSITION.
--- NOTE | 2022-05-31 10:44 | NUR ---
Francia, IPR Director, reports that they are able to accept the patient today. The patient is to discharge today, 05/31, to [facility]. SW contacted and updated the patient's , Ami. Ami is in agreement to the plan. No additional needs at this time.
--- NOTE | 2022-05-31 11:05 | NUR ---
Patient in the shower with OT after shower. Patient was assisted to recliner by the bed, and 02 2L/NC use. Assessment completed, Lungs CTA. Noted small size of opening area at the bottom the left buttock and prescribed cream applied to the area. Patient has no needs or concerns at this time. See process intervention for notes.
--- NOTE | 2022-05-31 18:52 | NUR ---
Patient at dialysis and report given to IPR nurse for transfer. Patient's belongings taken to IPR.
[2022-06-01 08:31] LABS: KAPPA FREE LIGHT CHAIN-SERUM 168.94 mg/L (()); KAPPA LAMBDA RATIO 1.16 ratio (()); LAMDA FREE LIGHT CHAIN SERUM 145.38 mg/L (())
[2022-06-02 10:24] LABS: A/G RATIO (PEP) 0.93 (()); BETA GLOBULINS (PEP) 0.7 g/dL (0.7-1.2)
[2022-06-11] MEDS ORDERED: COLESTID 1GM1 G PO (09:18)
[2022-06-11] MEDS ORDERED: COZAAR 50MG50 MG/TAB PO (09:19)
== END 2022-05-31 18:58 | DRG 70 ==
LOC: MEDICAL 14:10 → SURG 05-29 16:55
PROVIDERS: Nurse Practitioner; Registered Nurse; ADMIT Internal Medicine Nephrology
DX: G93.41 Metabolic encephalopathy (principal); J18.9 Pneumonia, unspecified organism; N18.6 End stage renal disease; I13.0 Hypertensive heart and chronic kidney disease with heart failure and stage 1 through stage 4 chronic kidney disease, or unspecified chronic kidney disease; E27.40 Unspecified adrenocortical insufficiency; D61.818 Other pancytopenia; E78.5 Hyperlipidemia, unspecified; E11.22 Type 2 diabetes mellitus with diabetic chronic kidney disease; E11.43 Type 2 diabetes mellitus with diabetic autonomic (poly)neuropathy; K31.84 Gastroparesis; R29.6 Repeated falls; I48.0 Paroxysmal atrial fibrillation; F41.1 Generalized anxiety disorder; F32.9 Major depressive disorder, single episode, unspecified; K29.80 Duodenitis without bleeding; E11.42 Type 2 diabetes mellitus with diabetic polyneuropathy; L89.159 Pressure ulcer of sacral region, unspecified stage; K22.70 Barrett's esophagus without dysplasia; I50.9 Heart failure, unspecified; D50.9 Iron deficiency anemia, unspecified; D63.1 Anemia in chronic kidney disease; E55.9 Vitamin D deficiency, unspecified; Z90.89 Acquired absence of other organs; Z90.49 Acquired absence of other specified parts of digestive tract; Z23 Encounter for immunization; Z99.2 Dependence on renal dialysis; Z79.01 Long term (current) use of anticoagulants; Z79.899 Other long term (current) drug therapy
CPT/HCPCS: J1756; J1815; Q5105